=== PATIENT | female | born 1985 | race Caucasian/White ===

== ENCOUNTER → 2018-01-06 | Outpatient (CLI) | payer BC ==
[~2018-01-06] MED LIST: AZIT250 PO; CYCL10 PO; MEDR150I IM; MULVITMINE PO; NAPR500 PO; NEOPOLHYDS OT; ONDA4 PO; PRED20 PO
== END | disposition home or self-care (01) ==
LOC: PLD 07:49 → LAB SHORT 07:49
DX: D48.5 Neoplasm of uncertain behavior of skin (principal)
CPT/HCPCS: 88304